=== PATIENT | female | born 1995 ===

== ENCOUNTER 2022-10-19 12:29 | Outpatient (CLI) | payer OTHER | END 2022-10-19 14:15 | disposition home or self-care (01) | LOC: PRENATAL 12:29 | PROVIDERS: ATTEND Obstetrics & Gynecology Maternal & Fetal Medicine | DX: O35.9XX0 Maternal care for (suspected) fetal abnormality and damage, unspecified, not applicable or unspecified (principal); O35.3XX0 Maternal care for (suspected) damage to fetus from viral disease in mother, not applicable or unspecified; O26.20 Pregnancy care for patient with recurrent pregnancy loss, unspecified trimester; Z3A.20 20 weeks gestation of pregnancy ==

== ENCOUNTER 2022-11-23 08:38 | Emergency (ER) | payer OTHER ==
[~2022-11-23] VITALS: Ht 157.5 cm; Wt 63.5 kg
== END 2022-11-23 11:27 | disposition home or self-care (01) ==
LOC: ER 08:38
DX: O98.512 Other viral diseases complicating pregnancy, second trimester (principal); B34.9 Viral infection, unspecified; Z3A.23 23 weeks gestation of pregnancy

== ENCOUNTER 2022-12-13 08:43 | Outpatient (CLI) | payer OTHER ==
[~2022-12-13] VITALS: Ht 157.5 cm; Wt 64.4 kg
== END 2022-12-14 12:59 | disposition home or self-care (01) ==
LOC: OBS/DEL 08:43
PROVIDERS: ATTEND Obstetrics & Gynecology
DX: O99.612 Diseases of the digestive system complicating pregnancy, second trimester (principal); K80.80 Other cholelithiasis without obstruction; R10.11 Right upper quadrant pain; Z3A.27 27 weeks gestation of pregnancy

== ENCOUNTER 2023-01-11 13:46 | Outpatient (CLI) | payer OTHER | END 2023-01-11 15:31 | disposition home or self-care (01) | LOC: PRENATAL 13:46 | PROVIDERS: ATTEND Obstetrics & Gynecology Maternal & Fetal Medicine | DX: O26.849 Uterine size-date discrepancy, unspecified trimester (principal); O36.8199 Decreased fetal movements, unspecified trimester, other fetus; Z3A.32 32 weeks gestation of pregnancy ==

== ENCOUNTER 2023-02-22 20:24 | Inpatient (IN) | payer OTHER ==
[~2023-02-22] VITALS: Ht 157.5 cm; Wt 65.3 kg
[2023-02-22] MEDS ORDERED: PRENATABS RX T1 EACH PO (20:43)
== END 2023-02-25 12:19 | disposition home or self-care (01) | DRG 807 ==
LOC: LDR 20:24 → OB/GYN 02-23 10:30
PROVIDERS: ADMIT Obstetrics & Gynecology; ATTEND Obstetrics & Gynecology
PROC: 4A1HXCZ Monitoring of Products of Conception, Cardiac Rate, External Approach (ICD-10-PCS; 2023-02-22)
PROC: 10E0XZZ Delivery of Products of Conception, External Approach (ICD-10-PCS; principal; 2023-02-23)
PROC: 0KQM0ZZ Repair Perineum Muscle, Open Approach (ICD-10-PCS; 2023-02-23)
DX: O70.1 Second degree perineal laceration during delivery (principal); Z37.0 Single live birth; Z20.822 Contact with and (suspected) exposure to COVID-19; Z3A.37 37 weeks gestation of pregnancy